=== PATIENT | female | born 1965 | race Hispanic/Latino ===

== ENCOUNTER → 2017-05-05 | Outpatient (CLI) | payer OTHER ==
[~2017-05-05] MED LIST: LEVOTHYROXINE50 MCG PO; LISINOPRIL2.5 MG PO; METFORMIN HCL500 MG PO; PRAVASTATIN SOD40 MG
--- NOTE | 2017-05-05 13:27 | Diagnostic Imaging Report ---
PROCEDURE:SP LUMBAR, COMPLETE MIN 4VW TECHNIQUE:AP, lateral, bilateral oblique and coned down views lumbar spine INDICATION:Low back pain COMPARISON:None. FINDINGS: 5 nonrib-bearing lumbar vertebral bodies. Hypoplastic 12th ribs. Vertebral body height is maintained. Claw osteophytes at L2 and L3. Vertebral body and disc space height is otherwise maintained. Mild L4-L5 and L5-S1 facet arthropathy without gross neural foramen stenosis. Patent sacroiliac joints. Regional soft tissues are normal. CONCLUSION: Degenerative changes without acute abnormality. Dictated by: Santosh Son M.D. on 05/05/2017 at 13:27 Electronically approved by: Santosh Son M.D. on 05/05/2017 at 13:27
--- NOTE | 2017-05-05 13:28 | Diagnostic Imaging Report ---
PROCEDURE:SACRUM X-RAY TECHNIQUE:AP, lateral and cone-down lateral views sacral spine INDICATION:Low back pain COMPARISON:None. FINDINGS: The sacrum and image regional skeleton are intact and in anatomic alignment. Sacroiliac joints are patent, without significant sclerosis or osteophytosis. No erosion. Regional soft tissues are normal. CONCLUSION: No acute abnormality. Dictated by: Santosh Son M.D. on 05/05/2017 at 13:28 Electronically approved by: Santosh Son M.D. on 05/05/2017 at 13:28
== END ==
LOC: MAMMO 12:13
PROVIDERS: ATTEND Internal Medicine
DX: Z12.31 Encounter for screening mammogram for malignant neoplasm of breast (principal); M54.5 Low back pain
CPT/HCPCS: 72110; 72220; 77067

== ENCOUNTER → 2017-05-11 | Day surgery (SDC) | payer OTHER ==
[~2017-05-11] MED LIST changes: +FENTANYL CITRATE/PF 100MCG/2 ML INJ ONE; +HYOSCYAMINE SULFATE 0.5 MG/ML AMP ONE; +MIDAZOLAM HCL 2 MG/2 ML VIAL ONE; +PROPOFOL IV EMULSION 10 MG/ML 50 ML VIAL ONE
--- OUTSIDE RECORDS SUMMARY | 2017-05-11 09:47 | XMS REPORT ---
Author Author [facility] Address Unknown Phone Unavailable Care Team Providers Care Proposal Engineer Name Role Phone REJI LINDQUIST Unavailable Unavailable Problems This patient has no known problems. Allergies, Adverse Reactions, Alerts This patient has no known allergies or adverse reactions. Medications This patient has no known medications. Results Test Description Test Time Test Comments Text Results Atomic Results Result Comments SP LUMBAR, COMPLETE MIN 4VW [place] [address] Patient Name: ROBERT CHAVES MR #: [id number] : 1965 Age/Sex: 51/F Req #: [id number] Adm Physician: Ordered by: REJI LINDQUIST MD Report #: [id number] [facility] Room/Bed: Procedure: [id number] DX/SP LUMBAR, COMPLETE MIN 4VW Exam Date: Exam Time: REPORT STATUS: Signed PROCEDURE: SP LUMBAR, COMPLETE MIN 4VW TECHNIQUE: AP, lateral, bilateral oblique and coned down views lumbar spine INDICATION: Low back pain COMPARISON: None. FINDINGS: 5 nonrib-bearing lumbar vertebral bodies. Hypoplastic 12th ribs. Vertebral body height is maintained. Claw osteophytes at L2 and L3. Vertebral body and disc space height is otherwise maintained. Mild L4-L5 and L5-S1 facet arthropathy without gross neural foramen stenosis. Patent sacroiliac joints. Regional soft tissues are normal. CONCLUSION: Degenerative changes without acute abnormality. Dictated by: Rosita Son M.D. on 05/05/2017 at 13:27 Electronically approved by : Rosita Son M.D. on 05/05/2017 at 13:27 Dictated By : ROSITA SON MD 132 Transcribed By: ANGY on 05/05/17 132 COPY TO: REJI LINDQUIST MD SACRUM X-RAY [place] [address] Patient Name: ROBERT CHAVES MR # : [id number] : 1965 Age/Sex: 51/F Req #: [id number] [facility] Physician: Ordered by: REJI LINDQUIST MD Report #: [id number] Location: [facility] Room/Bed: Procedure: [id number] DX/ SACRUM X-RAY Exam Date: Exam Time: REPORT STATUS: Signed PROCEDURE: SACRUM X-RAY TECHNIQUE: AP, lateral and cone- down lateral views sacral spine INDICATION: Low back pain COMPARISON: None. FINDINGS: The sacrum and image regional skeleton are intact and in anatomic alignment. Sacroiliac joints are patent, without significant sclerosis or osteophytosis. No erosion. Regional soft tissues are normal. CONCLUSION: No acute abnormality. Dictated by: Rosita Son M.D. on 05/05/2017 at 13:28 Electronically approved by: Rosita Son M.D. on 05/05/2017 at 13:28 Dictated By: ROSITA SON MD [id number] Transcribed By: ANGY on 05/05/17 1328 COPY TO: REJI LINDQUIST MD
--- NOTE | 2017-05-11 13:03 | Operative Report ---
DATE OF PROCEDURE: May 11, 2017 REFERRING PHYSICIAN: Dr. Diane Lindquist PROCEDURES PERFORMED 1. Esophagogastroduodenoscopy. 2. Colonoscopy. INDICATIONS FOR EGD: Dyspepsia. INDICATIONS FOR COLONOSCOPY: Colorectal cancer screening. Personal history of colon polyps. MEDICATION: Patient was done under MAC. Please see anesthesiologist's note. PROCEDURE: With the patient in the left lateral decubitus position, the flexible fiberoptic Olympus gastroscope was introduced into the esophagus under direct visualization without any difficulty. There was some patchy erythema noted in the distal esophagus. The scope was then advanced with ease into the stomach, and the mucosa overlying the antrum and the body revealed some patchy erythema and mild to moderate edema, and biopsies were obtained and sent to stain for H. pylori. The pylorus was of normal contour and shape. It was intubated with ease, and the scope was advanced all the way to the 2nd portion of the duodenum. The scope was then withdrawn slowly. Mucosa overlying the proximal 2nd portion and the duodenal bulb appeared to be within normal limits. The scope was then withdrawn back into the stomach and retroflexed. The mucosa overlying the fundus and the cardia appeared to be within normal limits. The scope was then straightened out. The stomach was decompressed. Scope was subsequently withdrawn. Patient tolerated the procedure well. IMPRESSION 1. Distal esophagitis. 2. Gastritis, biopsied. Biopsies sent to stain for H. pylori. PLAN: Follow up histology. Initiate Protonix 40 mg 1 p.o. q.a.m. a.c. The patient was then turned around. After adequate lubrication of the anal canal, a flexible fiberoptic Olympus colonoscope was inserted into the rectum with ease and advanced all the way to the cecum. It was then withdrawn slowly. The mucosa overlying the cecum, ascending, transverse, descending, sigmoid and rectum appeared to be within normal limits. The scope was then retroflexed into the distal rectum, and small internal hemorrhoids were noted, none of which was actively bleeding. The scope was then straightened out. The rectosigmoid area as well as the distal rectal area were decompressed. Scope was subsequently withdrawn. Patient tolerated the procedure well. IMPRESSION: Internal hemorrhoids, none actively bleeding. PLAN: Initiate high-fiber, low-fat diet. Initiate high-fiber supplement. Patient will need a followup colonoscopy in 3 to 5 years. Job#: [id number] MH cc:REJI LINDQUIST MD
== END | disposition home or self-care (01) ==
LOC: OR 09:45
PROVIDERS: ATTEND Internal Medicine Gastroenterology
DX: Z12.11 Encounter for screening for malignant neoplasm of colon (principal); K29.70 Gastritis, unspecified, without bleeding; K20.9 Esophagitis, unspecified; K64.8 Other hemorrhoids; E03.9 Hypothyroidism, unspecified; E11.9 Type 2 diabetes mellitus without complications; I10 Essential (primary) hypertension; Z01.810 Encounter for preprocedural cardiovascular examination; Z68.35 Body mass index [BMI] 35.0-35.9, adult
CPT/HCPCS: 36415; 43239; 45378; 82948; 93005; J1980; J2250

== ENCOUNTER → 2017-12-03 | Outpatient (CLI) | payer OTHER ==
[~2017-12-03] MED LIST changes: -FENTANYL CITRATE/PF 100MCG/2 ML INJ ONE; -HYOSCYAMINE SULFATE 0.5 MG/ML AMP ONE; -MIDAZOLAM HCL 2 MG/2 ML VIAL ONE; -PROPOFOL IV EMULSION 10 MG/ML 50 ML VIAL ONE
--- NOTE | 2017-12-03 10:03 | Diagnostic Imaging Report ---
PROCEDURE:X-RAY ESOPHAGRAM COMPARISON:None. INDICATIONS:Not provided. FINDINGS: The patient was given air crystals, thick barium, and thin barium to drink in upright and prone positions. Multiple images of the esophagus were obtained. The esophagus is normal in appearance without evidence of dysmotility or esophagitis. There is spontaneous severe gastroesophageal reflux to above the level of the aortic arch. Limited views of the stomach and proximal small bowel are unremarkable. CONCLUSION: Severe spontaneous gastroesophageal reflux. Dictated by: VIOLETTE BENTLEY M.D. on 12/03/2017 at 10:11 Electronically approved by: VIOLETTE BENTLEY M.D. on 12/03/2017 at 10:11
== END ==
LOC: EDSEX 08:07 → DX 08:07
PROVIDERS: ATTEND Internal Medicine
DX: R13.10 Dysphagia, unspecified (principal); K21.9 Gastro-esophageal reflux disease without esophagitis
CPT/HCPCS: 74220

== ENCOUNTER → 2018-05-21 | Outpatient (CLI) | payer OTHER | LOC: MAMMO 12:37 | PROVIDERS: ATTEND Internal Medicine | DX: Z12.31 Encounter for screening mammogram for malignant neoplasm of breast (principal) | CPT/HCPCS: 77067 ==

== ENCOUNTER → 2019-04-18 | Outpatient (CLI) | payer OTHER ==
--- NOTE | 2019-04-19 08:58 | Diagnostic Imaging Report ---
#[id number] - MGDXBIL #BILATERAL DIGITAL DIAGNOSTIC MAMMOGRAM WITH CAD: 04/18/2019 CLINICAL: Palpable lump left breast. Comparison is made to exams dated: 05/21/2018 mammogram and 05/05/2017 mammogram - [facility]. There are scattered fibroglandular elements in both breasts. Current study was also evaluated with a Computer Aided Detection (CAD) system. There are benign lymph nodes in both breasts. There also is a benign calcification in the left breast. No significant masses, calcifications, or other findings are seen in either breast. Specifically, no new suspicious mammographic findings in the area of clinical concern at the right nipple to correspond with the palpable finding on clinical exam. There has been no significant interval change. IMPRESSION: BENIGN There is no mammographic evidence of malignancy. Specifically, no new suspicious mammographic findings in the area of clinical concern at the right nipple to correspond with the palpable finding on clinical exam. A targeted sonographic evaluation will be performed during the same visit. A 1 year screening mammogram is recommended. The patient will be notified by letter of the results. JUANIS BREEN M.D. kw/:04/18/2019 15:52:28 Logging Crew Foreman: Sophia BUTCHER)(Shannan), [facility] letter sent: Compared to Prior B9 Mammogram BI-RADS: 2 Benign
--- NOTE | 2019-04-19 08:58 | Diagnostic Imaging Report ---
#[id number] - USBRELIMLT ULTRASOUND OF THE LEFT BREAST : 04/18/2019 Comparison is made to exams dated: 04/18/2019 mammogram and 05/21/2018 mammogram - [facility]. Color flow and real-time ultrasound were performed on the left breast and also of the areolar region of the right breast for comparison. Overton scale images of the real-time examination were reviewed. There is mild skin thickening in the area of clinical concern at the right nipple when compared to the left nipple. No focal mass or fluid collection is seen. IMPRESSION: BENIGN There is mild skin thickening in the area of clinical concern at the right nipple when compared to the left nipple. No focal mass or fluid collection is seen. No sonographic evidence of malignancy. If symptoms persist, recommend specialized breast clinical follow-up. A 1 year screening mammogram is recommended. JUANIS BREEN M.D. kw/:04/18/2019 15:57:54 Mortgage Closer: Tania Washington RDPR, [facility] Ultrasound BI-RADS: 2 Benign
== END ==
LOC: MAMMO 10:53
PROVIDERS: ATTEND Internal Medicine
DX: N61.0 Mastitis without abscess (principal)
CPT/HCPCS: 77066